=== PATIENT | female | born 1970 ===

== ENCOUNTER 2022-03-27 01:28 | Emergency (ER) | payer BC ==
--- OUTSIDE RECORDS SUMMARY | 2022-03-27 01:31 | XMS REPORT | Continuity of Care Document ---
:1970 Author Organization [facility] t Address [address] [place] [address] [address]. S[address] [place] [address] Care Team Providers Name Role Phone Gilma DEL RIO Attending Clinician Unavailable Payers Payer Name Policy Type Policy Number Effective Date Expiration Date S rubio [employer] [id number] 2020 00:00:00 Problems This patient has no known problems. Allergies, Adverse Reactions, Alerts Allergy Allergy Status Severity Reaction(s) Onset Inactive Treating Comm ents Source Name Type Date Date Clinician NO KNOWN Drug [facility]ations This patient has no known medications. Procedures This patient has no known procedures. Encounters Start End Encounter Admission Attending Care Care Encounter Source Date/Time Date/Time Type Type Clinicians Facility Department ID 2020-11-28 2020-11-28 Outpatient Jessica DEL RIO [facility] [id number] Univers 13:30:00 13:30:00 YOVANA [id number] [facility] 2020-11-28 2020-11-28 Outpatient Jessica DEL RIO [facility] [id number] Univers 13:30:00 13:30:00 YOVANA [facility] 2020-11-21 2020-11-21 Outpatient Jessica DEL RIO [facility] [id number] Univers 13:30:00 13:30:00 YOVANA [id number] [facility] 2020-11-20 2020-11-20 Outpatient Jessica DEL RIO [facility] [id number] Univers 10:10:00 10:10:00 YOVANA [facility] 2020-11-18 2020-11-18 Outpatient Jessica DEL RIO [facility] [id number] Univers 10:10:00 10:10:00 YOVANA [facility] 2020-11-18 2020-11-18 Outpatient R ELIANE [facility] [id number] Univers 10:10:00 10:10:00 YOVANA [id number] [facility] Results This patient has no known results.
--- NOTE | 2022-03-27 04:13 | ER ---
Nurse's Notes [facility] Name: Saima Munoz Age: 51 yrs Sex: Female : 1970 Arrival Date: 03/27/2022 Time: 01:31 Bed 5 Private MD: Diagnosis: Presentation: 03/27 01:41 Chief complaint: Patient states: Sore throat x 3 days with fever, did a phone interview lp1 and prescribed Amoxicillin; Patient reports pain is worse than previous Strep symptoms, reports increased pain to right side of throat; Concern for possible abscess; Patient did home Covid test and Negative Result; Took Motrin last at 0030. Coronavirus screen: At this time, the client does not indicate any symptoms associated with coronavirus-19. Ebola Screen: No symptoms or risks identified at this time. Initial Sepsis Screen: Does the patient meet any 2 criteria? No. Patient's initial sepsis screen is negative. Does the patient have a suspected source of infection? No. Patient's initial sepsis screen is negative. Risk Assessment: Do you want to hurt yourself or someone else? Patient reports no desire to harm self or others. Onset of symptoms was March 27, 2022. 01:41 Method Of Arrival: Ambulatory lp1 01:41 Acuity: AURY 3 lp1 Triage Assessment: 04:11 General: Appears in no apparent distress. Behavior is calm. Pain: Denies pain. 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 Screenin:10 Abuse screen: Denies threats or abuse. Denies injuries from another. Nutritional sm5 screening: No deficits noted. Tuberculosis screening: No symptoms or risk factors identified. Fall Risk None identified. Assessment: 03:19 Reassessment: No changes from previously documented assessment. Patient and/or family ll3 updated on plan of care and expected duration. Pain level reassessed. Patient is alert, oriented x 3, equal unlabored respirations, skin warm/dry/pink. 04:10 Reassessment: pt stating she was feeling better and wanted to leave. Pt informed to 5 come back if symptoms get worse. Vital Signs: 01:41 BP 145 / 93; Pulse 91; Resp 18; Temp 99.7(O); Pulse Ox 96% on R/A; Weight 81.65 kg (R); lp1 Height 5 ft. 5 in. (165.10 cm); Pain 8/10; 03:19 BP 124 / 78; Pulse 73; Resp 74; Pulse Ox 95% on R/A; ll3 01:41 Body Mass Index 29.95 (81.65 kg, 165.10 cm) lp1 ED Course: 01:31 Patient arrived in ED. bp1 01:45 Triage completed. lp1 01:45 Arm band placed on. lp1 01:48 Andrew Durand MD is Attending Physician. 7 04:10 Patient has correct armband on for positive identification. Bed in low position. Side 5 rails up X 1. 04:11 No provider procedures requiring assistance completed. Patient did not have IV access sm5 during this emergency room visit. Administered Medications: No medications were administered Medication: 01:45 VIS not applicable for this client. lp1 Outcome: 04:11 Eloped from patient exam room, before seeing physician 5 04:11 Condition: stable 04:11 Instructed on need to come back if symptoms worsen 04:13 Patient left the ED. 5 Signatures: Stephanie Lilly RN RN lp1 Margaret Akins bp1 Andrew Durand MD MD 7 Beena Groves RN RN 3 Joy Gonzalez RN RN 5
[2022-03-27 04:41] VITALS: BP 145/93; TEMP 99.7; O2SAT 96
== END 2022-03-27 04:13 | disposition left against medical advice (07) ==
LOC: ER 01:28
DX: Z53.21 Procedure and treatment not carried out due to patient leaving prior to being seen by health care provider (principal)
CPT/HCPCS: 99281

== ENCOUNTER 2022-09-07 07:03 | Day surgery (SDC) | payer BC ==
[2022-09-07] MEDS ORDERED: Ringers Lactate 1,000 ML IV ONE ×2 (07:22→11:17)
[2022-09-07] MEDS ORDERED: dexAMETHasone 10 MG/ML VIAL ONE (08:22)
[2022-09-07] MEDS ORDERED: LIDOCAINE 2% MPF 5 ML VIAL ONE (08:22)
[2022-09-07] MEDS ORDERED: ROCURONIUM 50 MG/5 ML VIAL IV ONE (08:22)
[2022-09-07] MEDS ORDERED: propofoL 200 MG/20 ML VIAL IV ONE (08:22)
[2022-09-07] MEDS ORDERED: MIDAZOLAM HCL 2 MG/2 ML INJ ONE (08:22)
[2022-09-07] MEDS ORDERED: FENTANYL CITR 100 MCG/2 ML ONE (08:22)
[2022-09-07] MEDS ORDERED: ONDANSETRON 4 MG/2 ML VIAL ONE (08:23)
[2022-09-07] MEDS: CEFAZOLIN SODIUM 2 GM/VIAL ONE ×2 (09:36→10:10)
[2022-09-07] MEDS: BUPIVACAINE 0.25% PF 30 ML VIAL ONE ×2 (09:37→10:17)
[2022-09-07] MEDS ORDERED: GLYCOPYRROLATE 0.2 MG/ML SYR ONE (10:13)
[2022-09-07] MEDS ORDERED: EPHEDRINE SULF 50 MG/ML VIAL ONE (10:18)
[2022-09-07] MEDS ORDERED: KETOROLAC 30 MG/ML INJ ONE (11:13)
--- NOTE | 2022-09-07 11:49 | RAD REPORT ---
EXAM DESCRIPTION: RAD - Fluoroscopy <1 Hour - 09/07/2022 11:42 am CLINICAL HISTORY: FLUORO WITH DR BUCK ROOM 1 COMPARISON: BREAST/AXILLA, LIMITED dated 11/09/2017 FINDINGS: Fluoroscopy time: 1.1 minutes
[2022-09-07 13:36] VITALS: BP 111/56; TEMP 98.7; O2SAT 95
== END 2022-09-07 13:05 | disposition home or self-care (01) ==
LOC: OR 07:03
PROVIDERS: ATTEND Obstetrics & Gynecology
PROC: 01HY3MZ Insertion of Neurostimulator Lead into Peripheral Nerve, Percutaneous Approach (ICD-10-PCS; principal; 2022-09-07 08:00)
DX: N39.3 Stress incontinence (female) (male) (principal); N32.81 Overactive bladder; N95.2 Postmenopausal atrophic vaginitis; N81.84 Pelvic muscle wasting; I10 Essential (primary) hypertension
CPT/HCPCS: 76000; 64561; J2704; J2001; J2250; J3010; J1100; J7120 ×2; J2405

== ENCOUNTER 2022-09-14 06:34 | Day surgery (SDC) | payer BC ==
[2022-09-14] MEDS ORDERED: CEFAZOLIN SODIUM 2 GM/VIAL ONE (06:54)
[2022-09-14] MEDS ORDERED: LIDOCAINE 1% W/EPI 1:100,000 30 ML VIAL ONE ×3 (06:58→07:29)
[2022-09-14] MEDS ORDERED: FENTANYL CITR 100 MCG/2 ML ONE (07:18)
[2022-09-14] MEDS ORDERED: propofoL 200 MG/20 ML VIAL IV ONE ×4 (07:18→08:31)
[2022-09-14] MEDS ORDERED: MIDAZOLAM HCL 2 MG/2 ML INJ ONE (07:19)
[2022-09-14] MEDS ORDERED: LIDOCAINE 2% MPF 5 ML VIAL ONE (07:19)
[2022-09-14] MEDS ORDERED: ONDANSETRON 4 MG/2 ML VIAL ONE ×2 (07:19→09:11)
[2022-09-14] MEDS ORDERED: Ringers Lactate 1,000 ML IV ONE (08:38)
[2022-09-14] MEDS ORDERED: KETOROLAC 30 MG/ML INJ ONE (08:46)
[2022-09-14] MEDS ORDERED: dexAMETHasone 4 MG/ML VIAL ONE (08:46)
[2022-09-14] MEDS ORDERED: HYDROMORPHONE HCL 1 MG/ML INJ ONE (09:11)
[2022-09-14] MEDS ORDERED: MORPHINE 4 MG/ML SYR ONE (09:14)
[2022-09-14 09:44] VITALS: BP 97/58; TEMP 97.5; O2SAT 98
== END 2022-09-14 10:20 | disposition home or self-care (01) ==
LOC: OR 06:34
PROVIDERS: ATTEND Obstetrics & Gynecology
PROC: 0JH73BZ Insertion of Single Array Stimulator Generator into Back Subcutaneous Tissue and Fascia, Percutaneous Approach (ICD-10-PCS; principal; 2022-09-14 07:30)
DX: N39.3 Stress incontinence (female) (male) (principal); N32.81 Overactive bladder; R39.15 Urgency of urination; R33.9 Retention of urine, unspecified; I10 Essential (primary) hypertension; F32.A Depression, unspecified; N81.84 Pelvic muscle wasting; N95.2 Postmenopausal atrophic vaginitis
CPT/HCPCS: 64590; J2704 ×4; J1100; J2001; J2250; J3010; J7120; J2405 ×2; L8606; J1170